=== PATIENT | male | born 1990 | race Caucasian/White ===

== ENCOUNTER 2018-01-25 23:45 | Emergency (ER) | payer BC, OTHER ==
[2018-01-26] MEDS ORDERED: AMOXICILLIN/POTASSIUM CLAV 875MG/125MG TABLET PO ONE (00:05)
--- NOTE | 2018-01-26 00:10 | Emergency Department Record ---
History of Present Illness - General Chief Complaint: Animal Bite Stated Complaint: DOG BITE Time Seen by Provider: 01/26/18 00:05 Source: Patient Mode of Arrival: Ambulatory Limitations: No limitations - History of Present Illness Initial Comments: 27 yo male presents to ED for evaluation following a dog bite to the right hand. Patient reports that the injury occurred approximately 4 hours ago, denies other injury on examination. Patient reports that his tetanus is UTD, denies health problems at his baseline. MD Complaint: Animal bite Onset/Timin -: Hour(s) Right: Hand Animal: Dog Description: Household pet, Immunizations UTD Mechanism: Bite Pain Description: Dull, Constant Severity scale (1-10): 4 Context: Unprovoked Associated Symptoms: None Treatments Prior to Arrival: Irrigation - Related Data Patient Tetanus UTD (within 5 yrs): Yes Home Medications Medication Instructions Recorded Confirmed Last Taken Vortioxetine Hydrobromide 15 mg PO DAILY 01/25/18 01/25/18 Unknown [Brintellix] Previous Rx's Medication Instructions Recorded Amoxicillin/Potassium Clav 1 each PO BID #19 tablet 01/26/18 [Augmentin 875Mg/125Mg] Allergies Allergy/AdvReac Type Severity Reaction Status Date / Time No Known Drug Allergies Allergy Verified 11/06/14 16:37 Travel Screening - Travel/Exposure Within Last 30 Days Have you traveled within the last 30 days?: No Review of Systems Constitutional: Denies: Chills, Fever, Malaise, Night sweats Eyes: Denies: Eye discharge, Eye pain ENT: Denies: Congestion, Ear pain, Epistaxis Respiratory: Denies: Cough, Dyspnea Cardiovascular: Denies: Chest pain, Dyspnea on exertion Endocrine: Denies: Fatigue, Heat or cold intolerance Gastrointestinal: Denies: Abdominal pain, Nausea, Vomiting Genitourinary: Denies: Incontinence, Retention Musculoskeletal: Denies: Arthralgia, Back pain, Gout, Joint swelling Skin: Reports: Other (laceration to the right hand). Denies: Bruising, Change in color Neurological: Denies: Abnormal gait, Confusion, Headache, Seizure Psychiatric: Denies: Anxiety Hematological/Lymphatic: Denies: Anemia, Blood Clots Past Medical History - SOCIAL HISTORY Smoking Status: Never smoker Alcohol Use: Occasional Drug Use: None - RESPIRATORY Hx Respiratory Disorders: No - CARDIOVASCULAR Hx Cardio Disorders: No - NEURO Hx Neuro Disorders: No - GI Hx GI Disorders: No - Hx Genitourinary Disorders: No - ENDOCRINE Hx Endocrine Disorders: No - MUSCULOSKELETAL Hx Musculoskeletal Disorders: No - PSYCH Hx Psych Problems: Yes Hx Anxiety: Yes - HEMATOLOGY/ONCOLOGY Hx Hematology/Oncology Disorders: No Family Medical History Any Significant Family History?: No Physical Exam - General General Appearance: Alert, Oriented x3, Cooperative, Mild distress Limitations: No limitations - Head Head exam: Atraumatic, Normocephalic, Normal inspection Head exam detail: negative: Abrasion, Contusion, Chau's sign, General tenderness, Hematoma, Laceration - Eye Eye exam: Normal appearance. negative: Conjunctival injection, Periorbital swelling, Periorbital tenderness, Scleral icterus - ENT Ear exam: negative: Auricular hematoma, Auricular trauma Nasal Exam: negative: Active bleeding, Discharge, Dried blood, Foreign body Mouth exam: negative: Drooling, Laceration, Muffled voice, Tongue elevation - Neck Neck exam: Normal inspection. negative: Meningismus, Tenderness - Respiratory Respiratory exam: Normal lung sounds bilaterally. negative: Rales, Respiratory distress, Rhonchi, Stridor - Cardiovascular Cardiovascular Exam: Regular rate, Normal rhythm, Normal heart sounds Peripheral Pulses: 3+: Radial (R) - GI/Abdominal GI/Abdominal exam: Soft. negative: Rebound, Rigid, Tenderness - Rectal Rectal exam: Deferred - exam: Deferred - Extremities Extremities exam: Tenderness, Other (2.5 cm laceration to the hypothenar eminence of the right hand, strong distal radial pulse.). negative: Calf tenderness, Pedal edema - Back Back exam: Denies: CVA tenderness (R), CVA tenderness (L) - Neurological Neurological exam: Alert, Normal gait, Oriented X3 - Psychiatric Psychiatric exam: Normal affect, Normal mood - Skin Skin exam: Normal color. negative: Abrasion Type of lesion: negative: abrasion Course Vital Signs 01/25/18 23:51 Temperature 98.7 F Pulse Rate 91 H Respiratory 20 Rate Blood Pressure 138/82 Pulse Ox 99 - Reevaluation(s) Reevaluation #1: 01/26/18 00:15 Right hand: No radio-opaque FB identified Procedure Note: 2.5cm laceration to the hypothenar region of the right hand, bleeding controlled. Wound was cleaned and prepped in sterile fashion, no residual FB identified on examination. Wound was anesthetized with 2.5 mL of 1% Lidocaine with epinephrine with good anesthesia, and the laceration was repaired with 4-0 Prolene (#3) sutures in interrupted fashion. Patient tolerated the procedure well without complications. Augmentin was initiated prior to discharge. Patient was counseled to return to ED for any increased pain, swelling, erythema , or drainage from the hand wound. Disposition Disposition: Discharge Clinical Impression: Dog bite of hand Qualifiers: Encounter type: initial encounter Laterality: right Qualified Code(s): S61.451A - Open bite of right hand, initial encounter Disposition: Home, Self-Care Condition: (2) Stable Instructions: Animal Bite (ED) Additional Instructions: Return to ED if your symptoms worsen or if you have any concerns. Augmentin as directed. Sutures out in 10-14 days. Follow-up with your family doctor in 5-7 days as directed. Prescriptions: Amoxicillin/Potassium Clav [Augmentin 875Mg/125Mg] 1 each PO BID #19 tablet Forms: Patient Portal Access Time of Disposition: 00:10 Quality - Quality Measures Quality Measures: N/A - Blood Pressure Screening Does Patient Have Any of the Following: No Blood Pressure Classification: Pre-Hypertensive BP Reading Systolic Measurement: 138 Diastolic Measurement: 82 Screening for High Blood Pressure: < Pre-Hypertensive BP, F/U Documented > [ G8950] Pre-Hypertensive Follow-up Interventions: Referral to alternative/primary care provider.
--- NOTE | 2018-01-27 13:57 | RADIOLOGY REPORT ---
DATE: 01/26/2018 at 12:20 a.m. EXAM: RIGHT HAND. HISTORY: Dog bite to hand area and fifth metacarpal. TECHNIQUE: Three views of the right hand. COMPARISON: None. ENCOUNTER: Initial. FINDINGS: There is minor degenerative change at the first metacarpophalangeal joint. No definite fracture or dislocation of the right hand seen, and no prominent focal soft tissue swelling. No definite opaque foreign body seen, although some foreign bodies will be radiographically indistinguishable from adjacent soft tissues. IMPRESSION: 1. MILD DEGENERATIVE CHANGE AT THE FIRST METACARPOPHALANGEAL JOINT. 2. RIGHT HAND APPEARS OTHERWISE NEGATIVE. JOB NUMBER: [id number] MTDD
== END 2018-01-26 00:50 | disposition home or self-care (01) ==
LOC: ER 23:45
DX: S61.451A Open bite of right hand, initial encounter (principal); W54.0XXA Bitten by dog, initial encounter; Y92.009 Unspecified place in unspecified non-institutional (private) residence as the place of occurrence of the external cause
CPT/HCPCS: 12001; 99283; 99284

== ENCOUNTER 2018-02-08 17:48 | Emergency (ER) | payer BC ==
--- NOTE | 2018-02-08 17:58 | Emergency Department Record ---
History of Present Illness - General Chief Complaint: Suture removal Stated Complaint: REMOVE STITCHES Time Seen by Provider: 02/08/18 17:50 Source: Patient Mode of arrival: Ambulatory Limitations: No limitations - History of Present Illness Initial Comments: The patient is here for suture removal. He denies any problems. Complaint: Suture/staple removal - Related Data Previous Rx's Medication Instructions Recorded Amoxicillin/Potassium Clav 1 each PO BID #19 tablet 01/26/18 [Augmentin 875Mg/125Mg] Allergies Allergy/AdvReac Type Severity Reaction Status Date / Time No Known Drug Allergies Allergy Verified 11/06/14 16:37 Past Medical History - SOCIAL HISTORY Smoking Status: Never smoker Drug Use: None - RESPIRATORY Hx Respiratory Disorders: No - CARDIOVASCULAR Hx Cardio Disorders: No - NEURO Hx Neuro Disorders: No - GI Hx GI Disorders: No - Hx Genitourinary Disorders: No - ENDOCRINE Hx Endocrine Disorders: No - MUSCULOSKELETAL Hx Musculoskeletal Disorders: No - PSYCH Hx Psych Problems: Yes Hx Anxiety: Yes - HEMATOLOGY/ONCOLOGY Hx Hematology/Oncology Disorders: No Physical Exam - General General Appearance: Alert, Cooperative, No acute distress - Extremities Extremities exam: negative: Normal inspection (The lac is well healed. The 3 stitches were removed without problems.) Disposition Disposition: Discharge Clinical Impression: Encounter for removal of sutures Disposition: Home, Self-Care Condition: (2) Stable Instructions: Stitches Removal (ED) Additional Instructions: Return to the ER for any problems. Forms: Patient Portal Access Time of Disposition: 17:58 Quality - Quality Measures Quality Measures: N/A - Blood Pressure Screening View Details: Yes Does Patient Have Any of the Following: No Blood Pressure Classification: Normal BP Reading Systolic Measurement: 115 Diastolic Measurement: 79 Screening for High Blood Pressure: < Normal BP, F/U Not Required > [G8783]
== END 2018-02-08 18:03 | disposition home or self-care (01) ==
LOC: ER 17:48
DX: Z48.02 Encounter for removal of sutures (principal)

== ENCOUNTER 2018-09-26 10:31 | Emergency (ER) | payer BC ==
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
--- NOTE | 2018-09-27 10:23 | RADIOLOGY REPORT ---
EXAM: LEFT KNEE, FOUR VIEWS HISTORY: ANTERIOR PAIN IN REGION OF PATELLA POST FALL. TECHNIQUE: Four views of the left knee were obtained. Comparison: None. Encounter: Initial. FINDINGS: There is normal bone mineralization. No fracture, dislocation, or destructive bone lesion is seen. The articular relations are maintained. No joint effusion. There is mild prepatellar soft tissue swelling. IMPRESSION: NO FRACTURE NOR DISLOCATION. PREPATELLAR SOFT TISSUE SWELLING. JOB NUMBER: [id number] [facility]
== END 2018-09-26 12:14 | disposition home or self-care (01) ==
LOC: ER 10:31
DX: S89.92XA Unspecified injury of left lower leg, initial encounter (principal); V19.3XXA Pedal cyclist (driver) (passenger) injured in unspecified nontraffic accident, initial encounter
CPT/HCPCS: 99283